=== PATIENT | male | born 1975 | race Caucasian/White ===

== ENCOUNTER 2019-02-05 09:22 | Inpatient (IN) | payer OTHER ==
[2019-02-05 09:46] VITALS: BMI 24.3
--- NOTE | 2019-02-05 11:43 | HP ---
COWS - Scale Resting Pulse: 1= [place] 81-100 Sweatin= Chills/Flushing Restless Observation: 1= Difficult to Sit Still Pupil Size: 2= Moderately Dilated Bone or Joint Aches: 4=Acute Joint/Muscle Pain Runny Nose/ Eye Tearin= Runny Nose/Eyes GI Upset > 30mins: 1= Stomach Cramp Tremor Observation: 1= Tremor [place], Not Seen Yawning Observation: 2= >3x During Session Anxiety or Irritability: 2=Irritable/Anxious Goose Flesh Skin: 3=Piloerection COWS Score: 20 CIWA Score Nausea/Vomitin-Mild Nausea/No Vomiting Muscle Tremors: 1-None Visible, but [place] Anxiety: 2 Agitation: 1-Slight > Activity Paroxysmal Sweats: 1-Minimal Palms Moist Orientation: 0-Oriented Tacttile Disturbances: 0-None Auditory Disturbances: 0-None Visual Disturbances: 0-None Headache: 0-None Present (Pt has mixed opioid and alcohol use. Most likely from opioid use.) CIWA-Ar Total Score: 6 - Admission Criteria [facility]AS[facility] Guidelines: Admission for Medically Managed Detox: Requires at least one of the followin. CIWA greater than 12 2. Seizures within the past 24 hours 3. Delirium tremens within the past 24 hours 4. Hallucinations within the past 24 hours 5. Acute intervention needed for co occurring medical disorder 6. Acute intervention needed for co occurring psychiatric disorder 7. Severe withdrawal that cannot be handled at a lower level of care (continued vomiting, continued diarrhea, abnormal vital signs) requiring intravenous medication and/or fluids 8. Admission ROS S - HPI Chief Complaint: "use to do IV and now doing bags and want to stop before it's out of hand" Allergies/Adverse Reactions: Allergies Allergy/AdvReac Type Severity Reaction Status Date / Time No Known Drug Allergies Allergy Unknown Verified 02/05/19 09:39 thiamine (vitamin B1) AdvReac Mild Nausea Verified 02/05/19 09:39 [thiamine] thiamine AdvReac Mild Nausea Uncoded 02/05/19 09:39 History of Present Illness: The pt is a 43 yo male with hx of heroin, alcohol use disorder who presents with an acute withdrawal from opioids and wishes to be admitted for detox. Pt recently relapsed 8 months ago and is using 1-2 bags heroin a day and 6 pack of beer/day. Drug screen results + for THC, fen, opioids, and benzos. Pt does also admit to 3 Xanax used a day, obtained illicitly. The pt has a common law , lives with her and no children. Has hx of incarceration in 1999 for drug possession and is not on parrol. No surgical hx. Mother was alcoholic and passed 2/2 liver disease and father is alive and may have hx of illicit drug use. PMH is negative. Pt would like to be admitted for opioid detox. - Ebola screening Have you traveled outside of the country in the last 21 days: No Have you had contact with anyone from an Ebola affected area: No Do you have a fever: No Patient History - Patient Medical History Hx Anemia: No Hx Asthma: No Hx Chronic Obstructive Pulmonary Disease (COPD): No Hx Cancer: No Hx Cardiac Disorders: No Hx Congestive Heart Failure: No Hx Hypertension: No Hx Hypercholesterolemia: No Hx Pacemaker: No HX Cerebrovascular Accident: No Hx Seizures: No Hx Dementia: No Hx Diabetes: No Hx Gastrointestinal Disorders: No Hx Liver Disease: No Hx Genitourinary Disorders: No Hx Sexually Transmitted Disorders: No Hx Renal Disease (ESRD): No Hx Thyroid Disease: No Hx Human Immunodeficiency Virus (HIV): No Hx Hepatitis C: Yes Hx Depression: No Hx Suicide Attempt: No Hx Bipolar Disorder: No Hx Schizophrenia: No - Patient Surgical History Past Surgical History: No Hx Neurologic Surgery: No Hx Cataract Extraction: No Hx Cardiac Surgery: No Hx Lung Surgery: No Hx Breast Surgery: No Hx Breast Biopsy: No Hx Abdominal Surgery: No Hx Appendectomy: No Hx Cholecystectomy: No Hx Genitourinary Surgery: No Hx Section: No Hx Orthopedic Surgery: No Anesthesia Reaction: No - PPD History Date: 05/11/13 - Smoking Cessation Smoking history: Former smoker Have you smoked in the past 12 months: Yes Aproximately how many cigarettes per day: 5 If you are a former smoker, when did you quit?: 10yrs ago Hx Chewing Tobacco Use: No Initiated information on smoking cessation: No - Substance & Tx. History Hx Alcohol Use: Yes Hx Substance Use: Yes Substance Use Type: Alcohol, Heroin, Marijuana Hx Substance Use Treatment: Yes (previously in detox here at [facility]) - Substances abused Alcohol Substance route: Oral Frequency: Daily Amount used: 6 pack of beer Age of first use: 14 Date of last use: 02/04/19 Heroin Substance route: Inhalation Frequency: Daily Amount used: 2 bags Age of first use: 16 Date of last use: 02/04/19 Alprazolam (Xanax) Substance route: Oral Frequency: Daily Amount used: 3 sticks Age of first use: 16 Date of last use: 02/05/19 Family Disease History - Family Disease History Family Disease History: Other: Mother (alcohol,), Sister (dsa,on mmtp) Admission Physical Exam [facility] - Vital Signs Vital Signs: Vital Signs - 24 hr 02/05/19 02/05/19 09:32 10:02 Temperature 98.8 F 98.8 F Pulse Rate 82 82 Respiratory 18 18 Rate Blood Pressure 106/71 106/71 - Physical General Appearance: Yes: No Apparent Distress, Nourished HEENTM: Yes: Hearing grossly Normal, Normal ENT Inspection, JOSE F, Pharynx Normal Respiratory: Yes: Within Normal Limits, Normal Breath Sounds, No Respiratory Distress Neck: Yes: No masses,lesions,Nodules Breast: Yes: Breast Exam Deferred Cardiology: Yes: Regular Rhythm, Regular Rate Abdominal: Yes: Normal Bowel Sounds, Non Tender, Soft Back: Yes: Within Normal Limits Musculoskeletal: Yes: full range of Motion Extremities: Yes: Normal Range of Motion Neurological: Yes: property insurance agent II-XII NML intact, Fully Oriented, Alert, Motor Strength 5/5 Integumentary: Yes: Within Normal Limits Lymphatic: Yes: Within Normal Limits Cleared for Admission [facility] - Detox or Rehab [facility] Level of Care: Medically Managed Detox Regimen/Protocol: Methadone/Librium Claeared for Rehab Admission: No Breathalyzer - Breathalyzer Breathalyzer: 0 Vital Signs - Vital Signs Temperature: 98.8 F Temperature source: Oral Pulse Rate: 82 Respiratory Rate: 18 Blood Pressure: 106/71 - Height Height: 5 ft 9 in - Weight Weight: 74.843 kg - BMI Body Mass Index (BMI): 24.3 POC Urine test - Test device test lot number: n/a Urine Drug Screen - Test Device Lot number: [id number] Expiration date: 11/06/20 - Control Is test valid?: Yes - Results Drug screen NEGATIVE: No Urine drug screen results: THC-Marijuana, FEN-Fentanyl, MOP-Opiates, MTD- Methadone, BZO-Benzodiazepines Inpatient Rehab Admission - Rehab Decision to Admit Inpatient rehab admission?: No
--- NOTE | 2019-02-05 12:27 | PN ---
[facility] Progress Note Note: Patient reviewed with resident and is appropriate for alcohol and opioid detox. Reviewed all pertinent history and vitals. Dr. Hankins
[2019-02-05] MEDS ORDERED: BISMUTH SUBSALICYLATE 524 MG/30 ML UD PO PRN (12:28)
[2019-02-05] MEDS ORDERED: METHADONE HCL 10 MG TABLET (FOR DETOX USE ONLY) PO ONE (12:28)
[2019-02-05] MEDS ORDERED: IBUPROFEN 400 MG TABLET (FP) PO PRN (12:28)
[2019-02-05] MEDS ORDERED: MENTHOL/PHENOL 1 EACH UD MM PRN (12:28)
[2019-02-05] MEDS ORDERED: MAG HYDROX/AL HYDROX/SIMETH 30 ML UNIT-DOSE CUP PO PRN (12:28)
[2019-02-05] MEDS ORDERED: cloNIDine HCL 0.1 MG TABLET PO PRN (12:28)
[2019-02-05] MEDS ORDERED: MAGNESIUM CITRATE 300 ML BOTTLE PO PRN (12:28)
[2019-02-05] MEDS ORDERED: ACETAMINOPHEN 325 MG TABLET (FP) PO PRN ×2 (12:28)
[2019-02-05] MEDS ORDERED: METHOCARBAMOL 500 MG TABLET PO PRN (12:28)
[2019-02-05] MEDS ORDERED: MAGNESIUM HYDROX 2400MG/30ML ORAL SUSPENSION 30 ML CUP PO PRN (12:28)
[2019-02-05] MEDS ORDERED: hydrOXYzine PAMOATE 25 MG CAPSULE (FP) PO PRN (12:28)
[2019-02-05] MEDS ORDERED: chlordiazePOXIDE HCL 25 MG CAPSULE PO PRN (12:28)
[2019-02-05 16:44] LABS: ALBUMIN 4.2 g/dl (3.4-5.0); BILIRUBIN,TOTAL 0.3 mg/dL (0.2-1); BLOOD UREA NITROGEN 14.9 mg/dL (7-18); CALCIUM 9.6 mg/dL (8.5-10.1); CREATININE 0.9 mg/dL (0.55-1.3); POTASSIUM 4.8 mmol/L (3.5-5.1); TOT PROT 7.4 g/dl (6.4-8.2)
[2019-02-05 17:03] LABS: HEMATOCRIT 38.7 % (35.4-49); HEMOGLOBIN 13.2 GM/dL (11.7-16.9); MCH 30.8 pg (25.7-33.7); MEAN CELL VOLUME 90.7 fl (80-96); MEAN PLT VOLUME 8.7 fl (7.5-11.1); PLATELET COUNT 227 K/MM3 (134-434); RBC 4.27 M/mm3 (4.00-5.60); RDW 12.8 % (11.9-15.9); WHITE BLOOD COUNT 4.7 K/mm3 (4.0-10.0)
[2019-02-05] MEDS: chlordiazePOXIDE HCL 25 MG CAPSULE PO SCH ×2 (17:13→22:25)
[2019-02-05] MEDS: THIAMINE HCL 100 MG TABLET (FP) PO SCH (22:24)
[2019-02-05] MEDS: MELATONIN 5 MG TABLETS PO PRN (22:24)
[2019-02-06] MEDS: chlordiazePOXIDE HCL 25 MG CAPSULE PO SCH ×3 (05:23→22:17)
[2019-02-06] MEDS ORDERED: METHADONE HCL 10 MG TABLET (FOR DETOX USE ONLY) PO ONE (10:00)
[2019-02-06] MEDS ORDERED: METHADONE (DETOX) 20 MG, METHADONE (DETOX) 5 MG PO ONE (10:00)
[2019-02-06] MEDS: PRENATAL VITAMINS W/ FOLIC ACID TABLET (FP) PO SCH (10:08)
[2019-02-06] MEDS ORDERED: chlordiazePOXIDE HCL 10 MG CAPSULE PO PRN (11:00)
--- NOTE | 2019-02-06 13:53 | PN ---
S CIWA - CIWA Score Nausea/Vomitin-Mild Nausea/No Vomiting Muscle Tremors: 4-Moderate,w/Arms Extend Anxiety: 4-Mod. Anxious/Guarded Agitation: 4-Moderately Restless Paroxysmal Sweats: 1-Minimal Palms Moist Orientation: 0-Oriented Tacttile Disturbances: 0-None Auditory Disturbances: 0-None Visual Disturbances: 0-None Headache: 1-Very Mild CIWA-Ar Total Score: 15 S Progress Note (SOAP) Subjective: 43 years old male admitted on 02/05/19 for alcohol and opiate withdrawal sx management reported 8 years sobriety from opiate IV current relapse 8 months ago prefers focus on alcohol detox and shortening the methadone regimen Objective: 02/06/19 14:02 Vital Signs Temperature 97.2 F L 02/06/19 13:32 Pulse Rate 66 02/06/19 13:32 Respiratory Rate 18 02/06/19 13:32 Blood Pressure 119/73 02/06/19 13:32 O2 Sat by Pulse Oximetry (%) Laboratory Last Values WBC 4.7 K/mm3 (4.0-10.0) 02/05/19 13:30 RBC 4.27 M/mm3 (4.00-5.60) 02/05/19 13:30 Hgb 13.2 GM/dL (11.7-16.9) 02/05/19 13:30 Hct 38.7 % (35.4-49) 02/05/19 13:30 MCV 90.7 fl (80-96) 02/05/19 13:30 MCH 30.8 pg (25.7-33.7) 02/05/19 13:30 MCHC 34.0 g/dl (32.0-35.9) 02/05/19 13:30 RDW 12.8 % (11.9-15.9) 02/05/19 13:30 Plt Count 227 K/MM3 (134-434) D 02/05/19 13:30 MPV 8.7 fl (7.5-11.1) 02/05/19 13:30 Sodium 142 mmol/L (136-145) 02/05/19 13:30 Potassium 4.8 mmol/L (3.5-5.1) 02/05/19 13:30 Chloride 104 mmol/L (98-107) 02/05/19 13:30 Carbon Dioxide 32 mmol/L (21-32) 02/05/19 13:30 Anion Gap 6 MMOL/L (8-16) L 02/05/19 13:30 BUN 14.9 mg/dL (7-18) 02/05/19 13:30 Creatinine 0.9 mg/dL (0.55-1.3) 02/05/19 13:30 Est GFR (CKD-EPI)AfAm 121.67 02/05/19 13:30 Est GFR (CKD-EPI)NonAf 104.98 02/05/19 13:30 Random Glucose 79 mg/dL (74-106) 02/05/19 13:30 Calcium 9.6 mg/dL (8.5-10.1) 02/05/19 13:30 Total Bilirubin 0.3 mg/dL (0.2-1) 02/05/19 13:30 AST 10 U/L (15-37) L 02/05/19 13:30 ALT 18 U/L (13-61) 02/05/19 13:30 Alkaline Phosphatase 73 U/L (45-117) 02/05/19 13:30 Total Protein 7.4 g/dl (6.4-8.2) 02/05/19 13:30 Albumin 4.2 g/dl (3.4-5.0) 02/05/19 13:30 RPR Titer Nonreactive (NONREACTIVE) 02/05/19 13:30 lab noted Assessment: 02/06/19 14:03 alcohol withdrawal sx Plan: continue alcohol detox
[2019-02-06] MEDS: THIAMINE HCL 100 MG TABLET (FP) PO SCH (22:17)
[2019-02-06] MEDS: MELATONIN 5 MG TABLETS PO PRN (22:18)
[2019-02-07] MEDS ORDERED: chlordiazePOXIDE HCL 25 MG CAPSULE PO SCH (05:00)
[2019-02-07] MEDS: chlordiazePOXIDE HCL 25 MG CAPSULE PO SCH (05:44)
[2019-02-07] MEDS ORDERED: METHADONE HCL 5 MG TABLET (FOR DETOX USE ONLY) PO ONE (10:00)
[2019-02-07] MEDS ORDERED: METHADONE HCL 10 MG TABLET (FOR DETOX USE ONLY) PO ONE (10:00)
[2019-02-07] MEDS: PRENATAL VITAMINS W/ FOLIC ACID TABLET (FP) PO SCH (10:16)
--- NOTE | 2019-02-07 13:37 | PN ---
[facility] CIWA - CIWA Score Nausea/Vomitin-Mild Nausea/No Vomiting Muscle Tremors: 3 Anxiety: 2 Agitation: 3 Paroxysmal Sweats: 1-Minimal Palms Moist Orientation: 0-Oriented Tacttile Disturbances: 0-None Auditory Disturbances: 0-None Visual Disturbances: 0-None Headache: 1-Very Mild CIWA-Ar Total Score: 11 [facility] Progress Note (SOAP) Subjective: feeling better today ambulating on hallway social with peers hesitating discuss after care with staff Objective: 02/07/19 13:38 Vital Signs Temperature 98.5 F 02/07/19 13:02 Pulse Rate 73 02/07/19 13:02 Respiratory Rate 17 02/07/19 13:02 Blood Pressure 127/82 02/07/19 13:02 O2 Sat by Pulse Oximetry (%) Laboratory Last Values WBC 4.7 K/mm3 (4.0-10.0) 02/05/19 13:30 RBC 4.27 M/mm3 (4.00-5.60) 02/05/19 13:30 Hgb 13.2 GM/dL (11.7-16.9) 02/05/19 13:30 Hct 38.7 % (35.4-49) 02/05/19 13:30 MCV 90.7 fl (80-96) 02/05/19 13:30 MCH 30.8 pg (25.7-33.7) 02/05/19 13:30 MCHC 34.0 g/dl (32.0-35.9) 02/05/19 13:30 RDW 12.8 % (11.9-15.9) 02/05/19 13:30 Plt Count 227 K/MM3 (134-434) D 02/05/19 13:30 MPV 8.7 fl (7.5-11.1) 02/05/19 13:30 Sodium 142 mmol/L (136-145) 02/05/19 13:30 Potassium 4.8 mmol/L (3.5-5.1) 02/05/19 13:30 Chloride 104 mmol/L (98-107) 02/05/19 13:30 Carbon Dioxide 32 mmol/L (21-32) 02/05/19 13:30 Anion Gap 6 MMOL/L (8-16) L 02/05/19 13:30 BUN 14.9 mg/dL (7-18) 02/05/19 13:30 Creatinine 0.9 mg/dL (0.55-1.3) 02/05/19 13:30 Est GFR (CKD-EPI)AfAm 121.67 02/05/19 13:30 Est GFR (CKD-EPI)NonAf 104.98 02/05/19 13:30 Random Glucose 79 mg/dL (74-106) 02/05/19 13:30 Calcium 9.6 mg/dL (8.5-10.1) 02/05/19 13:30 Total Bilirubin 0.3 mg/dL (0.2-1) 02/05/19 13:30 AST 10 U/L (15-37) L 02/05/19 13:30 ALT 18 U/L (13-61) 02/05/19 13:30 Alkaline Phosphatase 73 U/L (45-117) 02/05/19 13:30 Total Protein 7.4 g/dl (6.4-8.2) 02/05/19 13:30 Albumin 4.2 g/dl (3.4-5.0) 02/05/19 13:30 RPR Titer Nonreactive (NONREACTIVE) 02/05/19 13:30 lab noted Assessment: 02/07/19 13:38 alcohol withdrawal sx Plan: continue alcohol detox
[2019-02-07] MEDS: THIAMINE HCL 100 MG TABLET (FP) PO SCH (22:20)
[2019-02-07] MEDS: MELATONIN 5 MG TABLETS PO PRN (22:20)
[2019-02-08] MEDS ORDERED: chlordiazePOXIDE HCL 10 MG CAPSULE PO PRN
[2019-02-08] MEDS: chlordiazePOXIDE HCL 10 MG CAPSULE PO SCH ×4 (08:05→22:10)
[2019-02-08] MEDS ORDERED: METHADONE HCL 10 MG TABLET (FOR DETOX USE ONLY) PO ONE (10:00)
[2019-02-08] MEDS ORDERED: METHADONE (DETOX) 10 MG, METHADONE (DETOX) 5 MG PO ONE (10:00)
[2019-02-08] MEDS: PRENATAL VITAMINS W/ FOLIC ACID TABLET (FP) PO SCH (10:06)
--- NOTE | 2019-02-08 18:01 | PN ---
[facility] CIWA - CIWA Score Nausea/Vomitin-No Nausea/No Vomiting Muscle Tremors: None Anxiety: 0-No Anxiety, at Ease Agitation: 2 Paroxysmal Sweats: No Perspiration Orientation: 0-Oriented Tacttile Disturbances: 0-None Auditory Disturbances: 0-None Visual Disturbances: 0-None Headache: 0-None Present CIWA-Ar Total Score: 2 S COWS - Scale Resting Pulse: 0= [place] 80 or Below Sweatin= No chills or Flushing Restless Observation: 1= Difficult to Sit Still Pupil Size: 0= Normal to Room Light Bone or Joint Aches: 0= None Runny Nose/ Eye Tearin= None GI Upset > 30mins: 0= None Tremor Observation of Outstretched Hands: 0= None Yawning Observation: 1= 1-2x During Session Anxiety or Irritability: 0= None Goose Flesh Skin: 0=Smooth Skin COWS Score: 2 S Progress Note (SOAP) Subjective: Patient denies current Withdrawal / Detox symptoms and reports that he feels well overall at this time. Objective: PATIENT A & O X 3, OBSERVED AMBULATING ON UNIT UNASSISTED. IN NO ACUTE DISTRESS. 02/08/19 18:00 Vital Signs Temperature 97.2 F L 02/08/19 13:12 Pulse Rate 64 02/08/19 13:12 Respiratory Rate 18 02/08/19 13:12 Blood Pressure 104/66 02/08/19 13:12 O2 Sat by Pulse Oximetry (%) Laboratory Tests 02/05/19 02/05/19 02/05/19 13:30 13:30 13:30 WBC 4.7 RBC 4.27 Hgb 13.2 Hct 38.7 MCV 90.7 MCH 30.8 MCHC 34.0 RDW 12.8 Plt Count 227 D MPV 8.7 Sodium 142 Potassium 4.8 Chloride 104 Carbon Dioxide 32 Anion Gap 6 L BUN 14.9 Creatinine 0.9 Est GFR (CKD-EPI)AfAm 121.67 Est GFR (CKD-EPI)NonAf 104.98 Random Glucose 79 Calcium 9.6 Total Bilirubin 0.3 AST 10 L ALT 18 Alkaline Phosphatase 73 Total Protein 7.4 Albumin 4.2 RPR Titer Nonreactive TB (QFT) Incubation TB Test (QFT) Nil TB Test (QFT) Mitogen TB Test (QFT) Antigen TB Test (QFT) TB Positive Criteria 02/05/19 13:30 WBC RBC Hgb Hct MCV MCH MCHC RDW Plt Count MPV Sodium Potassium Chloride Carbon Dioxide Anion Gap BUN Creatinine Est GFR (CKD-EPI)AfAm Est GFR (CKD-EPI)NonAf Random Glucose Calcium Total Bilirubin AST ALT Alkaline Phosphatase Total Protein Albumin RPR Titer TB (QFT) Incubation TB Test (QFT) Nil 0.03 TB Test (QFT) Mitogen 9.61 TB Test (QFT) Antigen 0.06 TB Test (QFT) Negative TB Positive Criteria LABS NOTED. Assessment: 02/08/19 18:01 WITHDRAWAL SYMPTOMS. Plan: CONTINUE DETOX. PATIENT SCHEDULED FOR D/C FROM DETOX UNIT TOMORROW.
[2019-02-08] MEDS: THIAMINE HCL 100 MG TABLET (FP) PO SCH (22:10)
[2019-02-08] MEDS: MELATONIN 5 MG TABLETS PO PRN (22:10)
[2019-02-09] MEDS ORDERED: chlordiazePOXIDE HCL 10 MG CAPSULE PO SCH (05:00)
[2019-02-09] MEDS ORDERED: METHADONE HCL 5 MG TABLET (FOR DETOX USE ONLY) PO ONE (06:00)
[2019-02-09 06:09] VITALS: BP 98/60; PULSE 61; TEMP 96.9
[2019-02-09] MEDS ORDERED: METHADONE HCL 10 MG TABLET (FOR DETOX USE ONLY) PO ONE (10:00)
--- NOTE | 2019-02-09 16:22 | DS ---
[facility] Detox Discharge Summary Admission Date: 02/05/19 Discharge Date: 02/09/19 - History Present History: Alcohol Dependence, Opioid Dependence, Sedative Dependence Additional Comments: PATIENT RETURNING HOME AND TO WORK. PATIENT WILL FOLLOW-UP WITH LOCAL 12-STEP/NA /AA OUTPATIENT SUPPORT GROUP PROGRAM FOR AFTERCARE. PATIENT WAS DISCHARGED FROM DETOX UNIT NI STABLE MEDICAL CONDITION. Pertinent Past History: Hep C. - Physical Exam Results Vital Signs: Vital Signs Temperature 96.9 F L 02/09/19 06:08 Pulse Rate 61 02/09/19 06:08 Respiratory Rate 18 02/09/19 06:08 Blood Pressure 98/60 02/09/19 06:08 O2 Sat by Pulse Oximetry (%) Pertinent Admission Physical Exam Findings: WITHDRAWAL SYMPTOMS. Laboratory Tests 02/05/19 02/05/19 02/05/19 13:30 13:30 13:30 WBC 4.7 RBC 4.27 Hgb 13.2 Hct 38.7 MCV 90.7 MCH 30.8 MCHC 34.0 RDW 12.8 Plt Count 227 D MPV 8.7 Sodium 142 Potassium 4.8 Chloride 104 Carbon Dioxide 32 Anion Gap 6 L BUN 14.9 Creatinine 0.9 Est GFR (CKD-EPI)AfAm 121.67 Est GFR (CKD-EPI)NonAf 104.98 Random Glucose 79 Calcium 9.6 Total Bilirubin 0.3 AST 10 L ALT 18 Alkaline Phosphatase 73 Total Protein 7.4 Albumin 4.2 RPR Titer Nonreactive TB (QFT) Incubation TB Test (QFT) Nil TB Test (QFT) Mitogen TB Test (QFT) Antigen TB Test (QFT) TB Positive Criteria 02/05/19 13:30 WBC RBC Hgb Hct MCV MCH MCHC RDW Plt Count MPV Sodium Potassium Chloride Carbon Dioxide Anion Gap BUN Creatinine Est GFR (CKD-EPI)AfAm Est GFR (CKD-EPI)NonAf Random Glucose Calcium Total Bilirubin AST ALT Alkaline Phosphatase Total Protein Albumin RPR Titer TB (QFT) Incubation TB Test (QFT) Nil 0.03 TB Test (QFT) Mitogen 9.61 TB Test (QFT) Antigen 0.06 TB Test (QFT) Negative TB Positive Criteria LABS NOTED. - Treatment Hospital Course: Detox Protocol Followed, Detoxed Safely, Responded well, Discharged Condition Good Patient has Accepted a Rehab Referral to: PT. WILL ATTEND LOCAL 12-STEP/NA/AA OUTPATIENT SUPPORT GROUP [facility]. - Medication Discharge Medications: Ambulatory Orders NK [No Known Home Medication] 05/02/16 - Diagnosis (1) Hepatitis C carrier Status: Chronic (2) Opioid dependence with withdrawal Status: Acute (3) Alcohol dependence with uncomplicated withdrawal Status: Acute - AMA Did Patient Leave Against Medical Advice: No
[2019-02-10] MEDS ORDERED: chlordiazePOXIDE HCL 10 MG CAPSULE PO ONE (05:00)
[2019-02-10] MEDS ORDERED: METHADONE HCL 5 MG TABLET (FOR DETOX USE ONLY) PO ONE (06:00)
== END 2019-02-09 09:21 | disposition home or self-care (01) | DRG 897 ==
LOC: YASAS 09:22 → Y3N 12:59
PROVIDERS: ADMIT Surgery; ATTEND Surgery
PROC: HZ2ZZZZ Detoxification Services for Substance Abuse Treatment (ICD-10-PCS; principal; 2019-02-05)
DX: F11.23 Opioid dependence with withdrawal (principal); F10.230 Alcohol dependence with withdrawal, uncomplicated; F13.230 Sedative, hypnotic or anxiolytic dependence with withdrawal, uncomplicated; B18.2 Chronic viral hepatitis C; Z87.891 Personal history of nicotine dependence
CPT/HCPCS: 36415; 80053; 85027; 86480; 86593; J0735

== ENCOUNTER 2022-03-10 21:48 | Emergency (ER) | payer OTHER ==
[2022-03-10 22:14] VITALS: BP 140/96; PULSE 77; RESP 19; TEMP 98.2; BMI 26.6
[2022-03-11] MEDS ORDERED: DIPHTH,PERTUSS(ACELL),TET 0.5 ML DISP.SYRIN IM ONE ×2 (01:03→01:09)
== END 2022-03-11 01:23 | disposition home or self-care (01) ==
LOC: JER 21:48
PROC: 3E0234Z Introduction of Serum, Toxoid and Vaccine into Muscle, Percutaneous Approach (ICD-10-PCS; principal; 2022-03-11)
DX: S01.111A Laceration without foreign body of right eyelid and periocular area, initial encounter (principal)
CPT/HCPCS: 99283-25

== ENCOUNTER 2022-12-11 14:31 | Emergency (ER) | payer OTHER ==
[2022-12-11 14:42] VITALS: BP 130/83; PULSE 90; RESP 18; TEMP 99.1; BMI 28.7
[2022-12-11] MEDS ORDERED: KETOROLAC TROMETHAMINE 30 MG/1 ML VIAL IM ONE (15:14)
[2022-12-11] MEDS ORDERED: KETOROLAC TROMETHAMINE 30 MG/1 ML VIAL ONE (15:18)
[2022-12-11] MEDS ORDERED: ACETAMINOPHEN 500 MG TABLET (FP) PO ONE (15:24)
[2022-12-11] MEDS ORDERED: ACETAMINOPHEN 325 MG TABLET (FP) ONE (15:36)
== END 2022-12-11 16:06 | disposition home or self-care (01) ==
LOC: JER 14:31
PROC: 3E0233Z Introduction of Anti-inflammatory into Muscle, Percutaneous Approach (ICD-10-PCS; principal; 2022-12-11)
DX: M54.50 Low back pain, unspecified (principal)
CPT/HCPCS: 99284-25